=== PATIENT | male | born 1980 | race African-American/Black ===

== ENCOUNTER 2022-07-06 19:44 | Emergency (ER) | payer MEDICAID ==
[~2022-07-06] VITALS: Ht 177.8 cm; Wt 95.3 kg
[2022-07-06 19:47] VITALS: BP_SYST 162
== END 2022-07-06 20:51 | disposition home or self-care (01) ==
LOC: SED 19:44
DX: H10.31 Unspecified acute conjunctivitis, right eye (principal); R51.9 Headache, unspecified; Z79.899 Other long term (current) drug therapy
CPT/HCPCS: 99281